=== PATIENT | female | born 2000 | race Caucasian/White ===

== ENCOUNTER 2021-07-07 14:46 | Emergency (ER) | payer OTHER ==
[~2021-07-07 14:46] MED LIST: MACROBID100 MG PO; ZOFRAN4 MG PO
[2021-07-07 15:59] LABS: BILIRUBIN NEGATIVE (NEGATIVE); BLOOD NEGATIVE Ery/uL (NEGATIVE); CLARITY HAZY (CLEAR); COLOR YELLOW (YELLOW); GLUCOSE (U) NORMAL (NORMAL); LEUKOCYTES NEGATIVE Leu/uL (NEGATIVE); NITRITE NEGATIVE (NEGATIVE); PROTEIN NEGATIVE (NEGATIVE); UROBILINOGEN 0.2 mg/dL (0.2-1.0); pH 7.5 (5.0-9.0)
[2021-07-07 16:04] LABS: BASOPHIL 0.2 % (0-2); EOSINOPHIL 0.2 % (0-5); HCT 38.9 % (37.0-47.0); HGB 13.7 g/dl (12.5-16.0); LYMPHOCYTE 18.9 % (15-48); MCH 33.2 pg (25.0-31.0); MCHC 35.2 g/dL (32.0-36.0); MCV 94.2 fL (78.0-100.0); MONOCYTE 5.2 % (0-12); MPV 10.4 fL (6.0-9.5); NEUTROPHIL 75.1 % (41-80); NRBC 0; PLT 180 K/uL (150-400); RBC 4.13 M/uL (4.20-5.40); RDW 12.5 % (11.5-14.0); WBC 9.2 K/uL (4.0-10.5)
[2021-07-07 16:06] LABS: BACTERIA TRACE; URINARY WBC RARE
[2021-07-07 16:24] LABS: ALBUMIN 3.1 g/dL (3.4-5.0); BILIRUBIN - TOTAL 0.3 mg/dL (0.2-1.0); BUN/CREAT RATIO (CALC) 19.6 RATIO; CREATININE 0.46 mg/dL (0.51-0.95); GLOBULIN (CALCULATION) 3.3 g/dL; POTASSIUM 3.2 mmol/L (3.5-5.1); TOTAL PROTEIN 6.4 g/dL (6.4-8.2)
[2021-07-07] MEDS ORDERED: KLOR-CON M 1010 MEQ PO (16:54)
== END 2021-07-07 17:56 | disposition home or self-care (01) ==
LOC: FER 14:46
PROVIDERS: Physician Assistant
DX: O99.891 Other specified diseases and conditions complicating pregnancy (principal); R42 Dizziness and giddiness; O99.282 Endocrine, nutritional and metabolic diseases complicating pregnancy, second trimester; E87.6 Hypokalemia; O99.332 Smoking (tobacco) complicating pregnancy, second trimester; F17.210 Nicotine dependence, cigarettes, uncomplicated; Z28.310 Unvaccinated for COVID-19; Z3A.15 15 weeks gestation of pregnancy
CPT/HCPCS: 36415; 80053; 81001; 85025; 99284; J7030

== ENCOUNTER 2021-07-21 12:07 | Emergency (ER) | payer OTHER ==
[~2021-07-21] VITALS: Ht 165.1 cm; Wt 62.1 kg
[~2021-07-21 12:07] MED LIST changes: +KLOR-CON M 1010 MEQ PO
[2021-07-21 13:11] LABS: BILIRUBIN NEGATIVE (NEGATIVE); BLOOD NEGATIVE Ery/uL (NEGATIVE); CLARITY CLEAR (CLEAR); COLOR YELLOW (YELLOW); GLUCOSE (U) NORMAL (NORMAL); LEUKOCYTES NEGATIVE Leu/uL (NEGATIVE); NITRITE NEGATIVE (NEGATIVE); PROTEIN NEGATIVE (NEGATIVE); UROBILINOGEN 0.2 mg/dL (0.2-1.0)
[2021-07-21 13:23] LABS: BASOPHIL 0.4 % (0-2); EOSINOPHIL 0.7 % (0-5); HCT 38.1 % (37.0-47.0); HGB 13.2 g/dl (12.5-16.0); LYMPHOCYTE 16.7 % (15-48); MCH 32.7 pg (25.0-31.0); MCHC 34.6 g/dL (32.0-36.0); MCV 94.3 fL (78.0-100.0); MPV 10.6 fL (6.0-9.5); NEUTROPHIL 74.6 % (41-80); NRBC 0; PLT 173 K/uL (150-400); RBC 4.04 M/uL (4.20-5.40); RDW 12.5 % (11.5-14.0); WBC 8.6 K/uL (4.0-10.5)
[2021-07-21 13:50] LABS: ALBUMIN 2.9 g/dL (3.4-5.0); BILIRUBIN - TOTAL 0.3 mg/dL (0.2-1.0); BUN/CREAT RATIO (CALC) 7.8 RATIO; CREATININE 0.51 mg/dL (0.51-0.95); GLOBULIN (CALCULATION) 3.5 g/dL; POTASSIUM 3.7 mmol/L (3.5-5.1); TOTAL PROTEIN 6.4 g/dL (6.4-8.2)
[2021-07-22 22:07] LABS: CHLAMYDIA TRACHOMATIS, NAA Negative (Negative); NEISSERIA GONORRHOEAE, NAA Negative (Negative)
== END 2021-07-21 14:36 | disposition home or self-care (01) ==
LOC: FER 12:07
PROVIDERS: Physician Assistant
DX: O26.892 Other specified pregnancy related conditions, second trimester (principal); R10.30 Lower abdominal pain, unspecified; O99.332 Smoking (tobacco) complicating pregnancy, second trimester; F17.210 Nicotine dependence, cigarettes, uncomplicated; Z3A.17 17 weeks gestation of pregnancy; Z28.310 Unvaccinated for COVID-19
CPT/HCPCS: 36415; 80053; 81003; 83690; 85025; 87210; 87491; 87591; 99284; J7030

== ENCOUNTER 2021-11-23 14:27 | Emergency (ER) | payer OTHER ==
[2021-11-23 16:18] LABS: BASOPHIL 0.3 % (0-2); EOSINOPHIL 0.4 % (0-5); HCT 36.9 % (37.0-47.0); HGB 12.9 g/dl (12.5-16.0); LYMPHOCYTE 14.5 % (15-48); MCH 32.4 pg (25.0-31.0); MCV 92.7 fL (78.0-100.0); MONOCYTE 6.3 % (0-12); MPV 10.7 fL (6.0-9.5); NEUTROPHIL 77.9 % (41-80); NRBC 0; PLT 205 K/uL (150-400); RBC 3.98 M/uL (4.20-5.40); RDW 11.9 % (11.5-14.0); WBC 13.6 K/uL (4.0-10.5)
[2021-11-23 16:35] LABS: ALBUMIN 2.4 g/dL (3.4-5.0); BILIRUBIN - TOTAL 0.4 mg/dL (0.2-1.0); CREATININE 0.53 mg/dL (0.51-0.95); GLOBULIN (CALCULATION) 3.9 g/dL; POTASSIUM 3.7 mmol/L (3.5-5.1); TOTAL PROTEIN 6.3 g/dL (6.4-8.2)
[2021-11-23 20:23] LABS: BILIRUBIN NEGATIVE (NEGATIVE); BLOOD NEGATIVE Ery/uL (NEGATIVE); CLARITY CLOUDY (CLEAR); COLOR YELLOW (YELLOW); GLUCOSE (U) NORMAL (NORMAL); LEUKOCYTES 1+ Leu/uL (NEGATIVE); NITRITE NEGATIVE (NEGATIVE); PROTEIN NEGATIVE (NEGATIVE)
[2021-11-23 21:05] LABS: BACTERIA 3+
== END 2021-11-23 21:05 | disposition home or self-care (01) ==
LOC: FER 14:27
PROVIDERS: Emergency Medicine
DX: O99.891 Other specified diseases and conditions complicating pregnancy (principal); O99.333 Smoking (tobacco) complicating pregnancy, third trimester; R10.11 Right upper quadrant pain; F17.200 Nicotine dependence, unspecified, uncomplicated; Z3A.36 36 weeks gestation of pregnancy; Z28.310 Unvaccinated for COVID-19
CPT/HCPCS: 36415; 76705; 80053; 81001; 85025